=== PATIENT | female | born 1960 | race Caucasian/White ===

== ENCOUNTER 2019-04-17 13:36 | Outpatient (CLI) | payer BC ==
--- NOTE | 2019-04-17 14:51 | BD ---
DEXA BONE DENSITY SCAN: Date: 04/17/2019 COMPARISON: None available. HISTORY: Postmenopausal female undergoing screening for osteoporosis. FINDINGS: Lumbar Spine BMD (g/cm2) L1 0.666 T-Score -2.9 L2 0.749 T-Score -2.5 L3 0.749 T-Score -3.0 L4 0.727 T-Score -3.0 L1-L4 0.724 T-Score -2.9 Femoral Neck 0.641 T-Score -1.9 Total Femur 0.760 T-Score -1.5 FRAX-WHO fracture risk assessment tool is not reported as some T-scores are at or below -2.5. IMPRESSION: Diffuse lumbar spine osteoporosis, correlating with a high associated risk for fracture. There is ost eopenia within the proximal left femur. Transcribed Date/Time: 04/17/2019 3:33 PM
== END 2019-04-17 13:37 | disposition home or self-care (01) ==
LOC: BICMAMMO 13:36
PROVIDERS: ATTEND Family Medicine
DX: Z13.820 Encounter for screening for osteoporosis (principal); M81.0 Age-related osteoporosis without current pathological fracture; M85.852 Other specified disorders of bone density and structure, left thigh
CPT/HCPCS: 77080